=== PATIENT | female | born 1960 | race Caucasian/White ===

== ENCOUNTER 2019-05-30 10:45 | Emergency (ER) | payer SELFPAY ==
[~2019-05-30] VITALS: Ht 154.9 cm; Wt 61.2 kg
[2019-05-30 12:02] VITALS: BP_SYST 122
[2019-05-30 12:28] VITALS: BP_SYST 122
== END 2019-05-30 12:28 | disposition home or self-care (01) ==
LOC: SED 10:45
DX: N39.0 Urinary tract infection, site not specified (principal)
CPT/HCPCS: 81002; 99283